=== PATIENT | female | born 1985 | race Caucasian/White ===

== ENCOUNTER 2018-05-18 11:16 | Emergency (ER) | payer OTHER ==
[2018-05-18 13:31] LABS: URINE PH (Dip) POC 6.5 (5.0-8.5)
[2018-05-18 13:31] LABS: URINE BLOOD (Dip) POC 1+ (NEGATIVE); URINE GLUCOSE (Dip) POC Negative (NEGATIVE); URINE KETONES (Dip) POC Negative (NEGATIVE); URINE LEUKOCYTE EST (Dip) POC Negative (NEGATIVE); URINE NITRITE (Dip) POC Negative (NEGATIVE); URINE TOTAL PROTEIN POC Negative (NEGATIVE)
[2018-05-18] MEDS: ONDANSETRON (ODT) 4 MG TAB ODT (13:40)
[2018-05-18] MEDS: MECLIZINE 12.5 MG TAB PO (13:40)
== END 2018-05-18 14:37 | disposition home or self-care (01) ==
LOC: FTE 11:16
DX: R42 Dizziness and giddiness (principal)
CPT/HCPCS: 70450; 81003; 81025; 93005; 99284-25